=== PATIENT | female | born 1965 | race Caucasian/White ===

== ENCOUNTER 2022-06-12 13:10 | Outpatient (CLI) | payer OTHER, SELFPAY ==
[2022-06-12] MEDS: PROCHLORPERAZINE MALEATE 5 MG TABLET 10 MG PO (13:39)
[2022-06-12] MEDS: DEXAMETHASONE SOD PHOS INJ 4 MG/ML VIAL IV PUSH (13:39)
[2022-06-12 13:46] LABS: Hematocrit 43.7 % (35.0-49.0); Hemoglobin 13.8 g/dL (12.0-15.0); Immature Platelet Fraction Pct 1.3 % (1.0-7.0); Mean Corpuscular HGB Conc 31.6 g/dL (32.0-36.0); Mean Corpuscular Hemoglobin 26.7 pg (27.0-31.0); Mean Corpuscular Volume 84.5 fL (78.0-102.0); Mean Platelet Volume 8.7 fl (9.2-11.8); Platelet Count Result 1125 K/mm3 (150-420); Red Blood Count 5.17 M/mm3 (4.20-5.40)
[2022-06-12 13:47] LABS: White Blood Count 24.4 K/mm3 (4.8-10.8)
[2022-06-12 13:56] LABS: Albumin Level 2.6 g/dL (3.4-5.0); Alkaline Phosphatase 169 U/L (46-116); Anion Gap 11 mmol/L (8-16); Aspartate Amino Transferase 57 U/L (15-37); Band Neutrophils Percent 1 % (0-6); Bilirubin,Total 0.5 mg/dL (0.00-1.00); Blood Urea Nitrogen 19 mg/dL (7-18); Calcium 9.7 mg/dL (8.5-10.1); Carbon Dioxide 26 mmol/L (21-32); Chloride 96 mmol/L (98-108); Eosinophils Absolute Manual 0.48 K/mm3 (0.02-0.5); Eosinophils Percent Manual 2 % (1-6); Estimated Glomerular Filt Rate 31; Glucose 130 mg/dL (70-99); Lymphocytes Absolute Manual 1.46 K/mm3 (1.1-4.5); Lymphocytes Percent Manual 6 % (18-44); Monocytes Absolute Manual 2.44 K/mm3 (0.1-0.90); Monocytes Percent Manual 10 % (3-9); Neutrophils Percent Manual 81 % (46-73); Osmolality Calculated 280 mOsm/kg (285-295); Platelet Estimate Increased (Adequate); Potassium 4.5 mmol/L (3.5-5.1); Sodium 133 mmol/L (136-145); Total Cells Counted 100; Total Protein 7.7 g/dL (6.4-8.2)
[2022-06-12 14:10] LABS: Alanine Aminotransferase 12 U/L (14-59)
[2022-06-12 14:25] VITALS: BMI 20.5
[2022-06-12 14:26] VITALS: BP 110/67; PULSE 100; RESP 14; TEMP 36.6; O2SAT 100
--- NOTE | 2022-06-12 14:35 | PC.NURSE ---
Patient here for chemo cycle 1. Education given verbal and written. Chemo calendar given and explained. Blood drawn sent/reviewed/ok'd for chemo. Dr. Kapoor was notified of WBC count on results and verbally said to proceed with chemo. Pre medications administered see JUL. Chemo 5 fu continuous on take home pump began. Will return 06/17/22 at 1400 to have pump removed. Safe exit of hospital escorted by significant other.
--- NOTE | 2022-06-19 06:48 | PC.NURSE ---
06/17/22 1415 Patient here to get chemo pump removed and port flushed. Patient tolerated chemo well. Had one episode of diarrhea and took Immodium for. Port flushed and deaccessed. Site asystomatic of s/sx of infection. Will return on Sunday06/19/22 for next cycle of chemo concurrent with her radiation tx's. Safe exit of hospital with significant other.
== END 2022-06-12 13:11 | disposition home or self-care (01) ==
LOC: CHSTREATRM 13:16
PROVIDERS: Visit Provider Internal Medicine Hematology & Oncology
DX: Z51.11 Encounter for antineoplastic chemotherapy (principal); C20 Malignant neoplasm of rectum
CPT/HCPCS: 36415; 80053; 85025; 85055; 96374; 96375; 96416; A9270; J1100; J9190

== ENCOUNTER 2022-06-19 12:19 | Outpatient (CLI) | payer OTHER, SELFPAY ==
[2022-06-19 12:45] LABS: Basophils Absolute Auto 0.08 K/mm3 (0.00-0.10); Basophils Percent Auto 0.5 % (0.0-1.0); Eosinophils Absolute Auto 0.52 K/mm3 (0.02-0.50); Eosinophils Percent Auto 3.5 % (1.0-6.0); Hematocrit 41.4 % (35.0-49.0); Hemoglobin 13.2 g/dL (12.0-15.0); Immature Granulocyte Absolute 0.14 K/mm3 (0.00-0.00); Immature Granulocyte Percent A 0.9 % (0.0-0.0); Immature Platelet Fraction Pct 0.7 % (1.0-7.0); Lymphocytes Absolute Auto 1.64 K/mm3 (1.10-4.50); Lymphocytes Percent Auto 10.9 % (18.0-42.0); Mean Corpuscular HGB Conc 31.9 g/dL (32.0-36.0); Mean Corpuscular Hemoglobin 27.1 pg (27.0-31.0); Mean Platelet Volume 8.5 fl (9.2-11.8); Monocytes Absolute Auto 1.03 K/mm3 (0.10-0.90); Monocytes Percent Auto 6.8 % (2.0-11.0); Neutrophils Absolute Auto 11.6 K/mm3 (1.7-7.2); Neutrophils Percent Auto 77.4 % (50.0-70.0); Platelet Count Result 828 K/mm3 (150-420); Red Blood Count 4.87 M/mm3 (4.20-5.40); Red Cell Distribution Width 14.4 % (11.6-14.4); White Blood Count 15.1 K/mm3 (4.8-10.8)
[2022-06-19 12:49] VITALS: BMI 21.2
[2022-06-19 12:52] VITALS: BP 98/59; PULSE 100; RESP 16; TEMP 36; O2SAT 97
[2022-06-19 12:57] LABS: Alanine Aminotransferase 14 U/L (14-59); Albumin Level 2.6 g/dL (3.4-5.0); Alkaline Phosphatase 144 U/L (46-116); Anion Gap 7 mmol/L (8-16); Aspartate Amino Transferase 24 U/L (15-37); Bilirubin,Total 0.4 mg/dL (0.00-1.00); Blood Urea Nitrogen 16 mg/dL (7-18); Carbon Dioxide 28 mmol/L (21-32); Chloride 101 mmol/L (98-108); Estimated CRCL calculation 47 ml/min; Estimated Glomerular Filt Rate 47; Glucose 138 mg/dL (70-99); Osmolality Calculated 285 mOsm/kg (285-295); Sodium 136 mmol/L (136-145); Total Protein 7.1 g/dL (6.4-8.2)
[2022-06-19] MEDS: DEXAMETHASONE SOD PHOS INJ 4 MG/ML VIAL IV PUSH (13:34)
[2022-06-19] MEDS: PROCHLORPERAZINE MALEATE 5 MG TABLET 10 MG PO (13:34)
--- NOTE | 2022-06-19 13:35 | PC.NURSE ---
Patient here for cycle 1 week 2 of chemo regimen 5 fu continuous on home pump. Education given. All concerns answered. Labs drawn/reviewed/ok'd for chemo. B/P 98/59 and 101/57- encouraged po fluids. Notified Dr. Kapoor of b/p. Patient is on 2 newer b/p pills. She will have radiation take her b/P tomorrow and report it me. Pre meds given and 5 Fu chemo on pump started. Will come back 06/24/22 at 1330 to get pump removed. Safe exit of hospital with sign other.
--- NOTE | 2022-06-24 18:31 | PC.NURSE ---
06/24/22 1335 Patient here to get chemo pump removed and port deaccessed/flushed. Reports did pretty good. Only c/o is burning in rectal area from radiation. Pumped removed and Port deaccessed. Tolerated well. Will return 06/26/22 to get cycle 3 cont. 5 fu. Safe exit of hospital with friend.
== END 2022-06-19 12:20 | disposition home or self-care (01) ==
LOC: CHSTREATRM 12:25
PROVIDERS: Visit Provider Internal Medicine Hematology & Oncology
DX: Z51.11 Encounter for antineoplastic chemotherapy (principal); C20 Malignant neoplasm of rectum
CPT/HCPCS: 36415; 36592; 80053; 85025; 85055; 96374; 96375; 96416; A9270; J1100; J9190

== ENCOUNTER 2022-06-26 13:01 | Outpatient (CLI) | payer OTHER, SELFPAY ==
[2022-06-26 13:21] VITALS: BP 98/60; PULSE 92; RESP 14; TEMP 36.1; O2SAT 98
[2022-06-26 13:22] VITALS: BMI 19.3
[2022-06-26 13:24] LABS: Basophils Absolute Auto 0.06 K/mm3 (0.00-0.10); Basophils Percent Auto 0.4 % (0.0-1.0); Eosinophils Absolute Auto 0.75 K/mm3 (0.02-0.50); Eosinophils Percent Auto 4.7 % (1.0-6.0); Hematocrit 41.2 % (35.0-49.0); Hemoglobin 13.3 g/dL (12.0-15.0); Immature Granulocyte Absolute 0.13 K/mm3 (0.00-0.00); Immature Granulocyte Percent A 0.8 % (0.0-0.0); Immature Platelet Fraction Pct 1.2 % (1.0-7.0); Lymphocytes Absolute Auto 1.46 K/mm3 (1.10-4.50); Lymphocytes Percent Auto 9.2 % (18.0-42.0); Mean Corpuscular HGB Conc 32.3 g/dL (32.0-36.0); Mean Corpuscular Hemoglobin 27.1 pg (27.0-31.0); Mean Corpuscular Volume 83.9 fL (78.0-102.0); Mean Platelet Volume 8.5 fl (9.2-11.8); Monocytes Absolute Auto 1.09 K/mm3 (0.10-0.90); Monocytes Percent Auto 6.9 % (2.0-11.0); Neutrophils Absolute Auto 12.3 K/mm3 (1.7-7.2); Platelet Count Result 587 K/mm3 (150-420); Red Blood Count 4.91 M/mm3 (4.20-5.40); Red Cell Distribution Width 15.6 % (11.6-14.4); White Blood Count 15.8 K/mm3 (4.8-10.8)
[2022-06-26 13:37] LABS: Albumin Level 2.8 g/dL (3.4-5.0); Alkaline Phosphatase 128 U/L (46-116); Anion Gap 9 mmol/L (8-16); Aspartate Amino Transferase 22 U/L (15-37); Bilirubin,Total 0.5 mg/dL (0.00-1.00); Blood Urea Nitrogen 13 mg/dL (7-18); Calcium 9.1 mg/dL (8.5-10.1); Carbon Dioxide 26 mmol/L (21-32); Chloride 95 mmol/L (98-108); Estimated CRCL calculation 46 ml/min; Estimated Glomerular Filt Rate 50; Glucose 102 mg/dL (70-99); Osmolality Calculated 270 mOsm/kg (285-295); Potassium 3.9 mmol/L (3.5-5.1); Sodium 130 mmol/L (136-145); Total Protein 7.3 g/dL (6.4-8.2)
[2022-06-26 13:46] LABS: Alanine Aminotransferase 9 U/L (14-59)
[2022-06-26] MEDS: DEXAMETHASONE SOD PHOS INJ 4 MG/ML VIAL IV PUSH (14:01)
[2022-06-26] MEDS: PROCHLORPERAZINE MALEATE 5 MG TABLET 10 MG PO (14:02)
--- NOTE | 2022-06-26 14:28 | PC.NURSE ---
Patient here for week 3 of 5 chemo regimen. All concerns answered. Labs drawn/reviewed/ok's to proceed. Pre meds and Chemo 5 fu per take home pump administered. SEE MAR. Will return 07/01/22 at 1400 for removal of chemo pump. Safe exit of hospital with sign other.
== END 2022-06-26 13:02 | disposition home or self-care (01) ==
LOC: CHSTREATRM 13:07
PROVIDERS: Visit Provider Internal Medicine Hematology & Oncology
DX: Z51.11 Encounter for antineoplastic chemotherapy (principal); C20 Malignant neoplasm of rectum
CPT/HCPCS: 36415; 36592; 80053; 85025; 85055; 96375; 96416; A9270; J1100; J9190

== ENCOUNTER 2022-07-04 13:37 | Outpatient (CLI) | payer OTHER, SELFPAY ==
[2022-07-04 14:00] VITALS: BMI 18.9
[2022-07-04 14:08] VITALS: BP 99/63; PULSE 100; RESP 14; TEMP 36.6; O2SAT 98
[2022-07-04 14:10] LABS: Basophils Absolute Auto 0.06 K/mm3 (0.00-0.10); Basophils Percent Auto 0.4 % (0.0-1.0); Eosinophils Absolute Auto 0.49 K/mm3 (0.02-0.50); Eosinophils Percent Auto 3.2 % (1.0-6.0); Hematocrit 40.3 % (35.0-49.0); Hemoglobin 12.9 g/dL (12.0-15.0); Immature Granulocyte Percent A 0.7 % (0.0-0.0); Lymphocytes Absolute Auto 0.89 K/mm3 (1.10-4.50); Lymphocytes Percent Auto 5.8 % (18.0-42.0); Mean Corpuscular Hemoglobin 27.5 pg (27.0-31.0); Mean Corpuscular Volume 85.9 fL (78.0-102.0); Mean Platelet Volume 8.4 fl (9.2-11.8); Monocytes Absolute Auto 1.12 K/mm3 (0.10-0.90); Monocytes Percent Auto 7.4 % (2.0-11.0); Neutrophils Absolute Auto 12.6 K/mm3 (1.7-7.2); Neutrophils Percent Auto 82.5 % (50.0-70.0); Platelet Count Result 461 K/mm3 (150-420); Red Blood Count 4.69 M/mm3 (4.20-5.40); Red Cell Distribution Width 17.5 % (11.6-14.4); White Blood Count 15.2 K/mm3 (4.8-10.8)
[2022-07-04] MEDS: PROCHLORPERAZINE MALEATE 5 MG TABLET 10 MG PO (14:30)
[2022-07-04] MEDS: DEXAMETHASONE SOD PHOS INJ 4 MG/ML VIAL IV PUSH (14:30)
[2022-07-04 14:40] LABS: Alanine Aminotransferase 10 U/L (14-59); Albumin Level 2.7 g/dL (3.4-5.0); Alkaline Phosphatase 117 U/L (46-116); Anion Gap 10 mmol/L (8-16); Aspartate Amino Transferase 25 U/L (15-37); Bilirubin,Total 0.5 mg/dL (0.00-1.00); Blood Urea Nitrogen 14 mg/dL (7-18); Calcium 9.1 mg/dL (8.5-10.1); Carbon Dioxide 24 mmol/L (21-32); Chloride 98 mmol/L (98-108); Estimated CRCL calculation 30 ml/min; Estimated Glomerular Filt Rate 32; Glucose 148 mg/dL (70-99); Osmolality Calculated 277 mOsm/kg (285-295); Potassium 3.9 mmol/L (3.5-5.1); Sodium 132 mmol/L (136-145); Total Protein 6.9 g/dL (6.4-8.2)
--- NOTE | 2022-07-04 15:08 | PC.NURSE ---
Patient here for chemo day - regimen. Reports Lomotil started yesterday helped a lot. Stools have decrease. Labs reviewed and ok'd for chemo All other concerns answered. Chemo regimen administered see JUL. Tolerated well. Will return on 07/09/22 at 1500 for 5 Fu Pump removal. Safe exit of hospital with significant other.
--- NOTE | 2022-07-09 14:50 | PC.NURSE ---
07/09/22 1445 Patient here to get chemo pump removed after finishing this week's regimen. All concerns answered. Chemo pump removed. *see vascular assessment. Tolerated it well. Will return 08/08/22 for chemo at 1330 after radiation. Safe exit of hospital with significant other.
== END 2022-07-04 13:38 | disposition home or self-care (01) ==
LOC: CHSTREATRM 13:40
PROVIDERS: Visit Provider Internal Medicine Hematology & Oncology
DX: Z51.11 Encounter for antineoplastic chemotherapy (principal); C20 Malignant neoplasm of rectum
CPT/HCPCS: 36415; 80053; 85025; 96375; 96416; A9270; J1100; J9190

== ENCOUNTER 2022-07-11 13:52 | Outpatient (CLI) | payer OTHER, SELFPAY ==
[2022-07-11 14:05] LABS: Basophils Absolute Auto 0.04 K/mm3 (0.00-0.10); Basophils Percent Auto 0.4 % (0.0-1.0); Eosinophils Absolute Auto 0.31 K/mm3 (0.02-0.50); Eosinophils Percent Auto 3.2 % (1.0-6.0); Hematocrit 40.7 % (35.0-49.0); Hemoglobin 13.1 g/dL (12.0-15.0); Immature Granulocyte Absolute 0.07 K/mm3 (0.00-0.00); Immature Granulocyte Percent A 0.7 % (0.0-0.0); Lymphocytes Absolute Auto 0.71 K/mm3 (1.10-4.50); Lymphocytes Percent Auto 7.3 % (18.0-42.0); Mean Corpuscular HGB Conc 32.2 g/dL (32.0-36.0); Mean Corpuscular Hemoglobin 27.2 pg (27.0-31.0); Mean Corpuscular Volume 84.6 fL (78.0-102.0); Mean Platelet Volume 8.2 fl (9.2-11.8); Monocytes Absolute Auto 0.98 K/mm3 (0.10-0.90); Neutrophils Absolute Auto 7.7 K/mm3 (1.7-7.2); Neutrophils Percent Auto 78.4 % (50.0-70.0); Platelet Count Result 396 K/mm3 (150-420); Red Blood Count 4.81 M/mm3 (4.20-5.40); Red Cell Distribution Width 18.5 % (11.6-14.4); White Blood Count 9.8 K/mm3 (4.8-10.8)
[2022-07-11] MEDS: PROCHLORPERAZINE MALEATE 5 MG TABLET 10 MG PO (14:05)
[2022-07-11] MEDS: DEXAMETHASONE SOD PHOS INJ 4 MG/ML VIAL IV PUSH (14:05)
[2022-07-11 14:10] VITALS: BP 98/58; PULSE 76; RESP 14; TEMP 36.7; O2SAT 97; BMI 18.9
[2022-07-11 14:20] LABS: Alanine Aminotransferase 15 U/L (14-59); Albumin Level 2.6 g/dL (3.4-5.0); Alkaline Phosphatase 121 U/L (46-116); Anion Gap 10 mmol/L (8-16); Aspartate Amino Transferase 49 U/L (15-37); Bilirubin,Total 0.8 mg/dL (0.00-1.00); Blood Urea Nitrogen 13 mg/dL (7-18); Calcium 8.9 mg/dL (8.5-10.1); Carbon Dioxide 31 mmol/L (21-32); Chloride 92 mmol/L (98-108); Estimated CRCL calculation 34 ml/min; Estimated Glomerular Filt Rate 36; Glucose 128 mg/dL (70-99); Osmolality Calculated 278 mOsm/kg (285-295); Potassium 3.4 mmol/L (3.5-5.1); Sodium 133 mmol/L (136-145); Total Protein 6.7 g/dL (6.4-8.2)
--- NOTE | 2022-07-11 14:36 | PC.NURSE ---
Patient here for day 29-33 Continuos 5 fu per take home pump. Patient just came from radiation tx. Patient having radiation pace to rectum. Radiation MD gave medication to put on. All chemo concerns and education given. Labs reviewed and ok'd for chemo. Pre meds administered and 5 FU per home pump administered. See MAR. Will return Sunday07/16/22 at 1400 for removal of pump. Safe exit of hospital with significant other.
--- NOTE | 2022-07-16 15:02 | PC.NURSE ---
Patient here for chemo pump removal. Reports doing well with the chemo. Having pace from radiation to rectum. Chemo pump removed. Port flushed per protocol. Tolerated well. Safe exit of hospital. Will see Dr. Kapoor and will go from there.
== END 2022-07-11 13:53 | disposition home or self-care (01) ==
PROVIDERS: Visit Provider Internal Medicine Hematology & Oncology
DX: Z51.11 Encounter for antineoplastic chemotherapy (principal); C20 Malignant neoplasm of rectum
CPT/HCPCS: 36415; 80053; 85025; 96375; 96416; A9270; J1100

== ENCOUNTER 2022-09-01 14:52 | Outpatient (CLI) | payer OTHER, SELFPAY ==
[2022-09-01 15:05] VITALS: BP 102/60; PULSE 88; RESP 14; O2SAT 96
[2022-09-01] MEDS: HEPARIN SODIUM LOCK FLUSH 500 UNITS/5 ML SYRINGE IV PUSH (15:05)
[2022-09-01 15:08] VITALS: BMI 18.5
--- NOTE | 2022-09-01 15:09 | PC.NURSE ---
Patient here for monthly port flush. Tolerated port flush well. SEE MAR/vascular access. Safe exit of hospital per significant other.
== END 2022-09-01 14:53 | disposition home or self-care (01) ==
LOC: CHSTREATRM 14:54
PROVIDERS: Visit Provider Internal Medicine Hematology & Oncology
DX: Z45.2 Encounter for adjustment and management of vascular access device (principal); C20 Malignant neoplasm of rectum
CPT/HCPCS: 96523